=== PATIENT | female | born 1990 | race Caucasian/White ===

== ENCOUNTER 2017-10-21 04:12 | Emergency (ER) | payer SELFPAY ==
[~2017-10-21] VITALS: Ht 167.6 cm; Wt 63.6 kg
[2017-10-21 06:35] VITALS: BP 117/69
== END 2017-10-21 06:37 | disposition home or self-care (01) ==
LOC: EMS 04:14
DX: S63.630A Sprain of interphalangeal joint of right index finger, initial encounter (principal); S20.211A Contusion of right front wall of thorax, initial encounter; F17.210 Nicotine dependence, cigarettes, uncomplicated; W18.39XA Other fall on same level, initial encounter; Y93.89 Activity, other specified; Y92.89 Other specified places as the place of occurrence of the external cause; Y99.8 Other external cause status
CPT/HCPCS: 71101; 99284

== ENCOUNTER 2019-02-21 13:02 | Emergency (ER) | payer SELFPAY ==
[~2019-02-21] VITALS: Ht 167.6 cm; Wt 68.2 kg
[2019-02-21] MEDS ORDERED: AMOX TR/POT CLAV 875 MG/125 MG TABLET PO ONE (16:00)
[2019-02-21] MEDS ORDERED: IBUPROFEN 400 MG TABLET PO ONE (16:00)
[2019-02-21 16:14] VITALS: BP 138/88
== END 2019-02-21 16:15 | disposition home or self-care (01) ==
LOC: EMS 13:05
DX: S02.5XXA Fracture of tooth (traumatic), initial encounter for closed fracture (principal); F17.210 Nicotine dependence, cigarettes, uncomplicated; X58.XXXA Exposure to other specified factors, initial encounter; Y93.89 Activity, other specified; Y92.89 Other specified places as the place of occurrence of the external cause; Y99.8 Other external cause status
CPT/HCPCS: 99406

== ENCOUNTER 2019-04-29 09:15 | Emergency (ER) | payer MEDICAID ==
[~2019-04-29] VITALS: Ht 167.6 cm; Wt 63.6 kg
[2019-04-29 09:19] VITALS: BP 146/75
== END 2019-04-29 10:58 | disposition left against medical advice (07) ==
LOC: EMS 09:19
DX: S00.11XA Contusion of right eyelid and periocular area, initial encounter (principal); Z53.21 Procedure and treatment not carried out due to patient leaving prior to being seen by health care provider; X58.XXXA Exposure to other specified factors, initial encounter; Y93.89 Activity, other specified; Y92.89 Other specified places as the place of occurrence of the external cause; Y99.8 Other external cause status

== ENCOUNTER 2019-05-04 04:09 | Emergency (ER) | payer MEDICAID ==
[~2019-05-04] VITALS: Ht 167.6 cm; Wt 67.3 kg
[2019-05-04 04:28] VITALS: BP 127/84
[2019-05-04] MEDS ORDERED: BUPIVACAINE HCL/PF 0.25% 10 ML VIAL INJ ONE (05:00)
[2019-05-04] MEDS ORDERED: LIDOCAINE 1% 10 ML VIAL INJ ONE (05:00)
[2019-05-04] MEDS ORDERED: PENICILLIN V POTASSIUM 500 MG TABLET PO ONE (05:00)
== END 2019-05-04 05:06 | disposition home or self-care (01) ==
LOC: EMS 04:09
DX: K04.01 Reversible pulpitis (principal); K08.89 Other specified disorders of teeth and supporting structures; F17.210 Nicotine dependence, cigarettes, uncomplicated
CPT/HCPCS: 64400; 99284; J3490 ×2

== ENCOUNTER 2019-09-13 18:06 | Emergency (ER) | payer MEDICAID ==
[~2019-09-13] VITALS: Ht 172.7 cm; Wt 81.8 kg
[2019-09-13 18:10] VITALS: BP 133/76
[2019-09-13] MEDS ORDERED: IBUPROFEN 600 MG TABLET PO ONE (19:00)
== END 2019-09-13 20:13 | disposition home or self-care (01) ==
LOC: EMS 18:08
DX: S63.502A Unspecified sprain of left wrist, initial encounter (principal); S63.602A Unspecified sprain of left thumb, initial encounter; S63.601A Unspecified sprain of right thumb, initial encounter; S46.912A Strain of unspecified muscle, fascia and tendon at shoulder and upper arm level, left arm, initial encounter; S80.11XA Contusion of right lower leg, initial encounter; F17.210 Nicotine dependence, cigarettes, uncomplicated; Y35.811A Legal intervention involving manhandling, law enforcement official injured, initial encounter; Y93.89 Activity, other specified; Y92.89 Other specified places as the place of occurrence of the external cause; Y99.8 Other external cause status
CPT/HCPCS: 29240; 29280; 99406

== ENCOUNTER 2021-07-11 21:39 | Emergency (ER) | payer MEDICAID, OTHER ==
[~2021-07-11] VITALS: Ht 167.6 cm; Wt 72.7 kg
[2021-07-11] MEDS ORDERED: QUET25TA PO (21:47)
[2021-07-12 01:08] VITALS: BP 134/82
== END 2021-07-12 01:00 | disposition home or self-care (01) ==
LOC: EMS 21:39
DX: M79.601 Pain in right arm (principal); R07.89 Other chest pain; F32.9 Major depressive disorder, single episode, unspecified; F17.210 Nicotine dependence, cigarettes, uncomplicated; Z79.899 Other long term (current) drug therapy; V49.49XA Driver injured in collision with other motor vehicles in traffic accident, initial encounter; Y93.89 Activity, other specified; Y92.89 Other specified places as the place of occurrence of the external cause; Y99.8 Other external cause status
CPT/HCPCS: 71046; 93005; 99284